=== PATIENT | female | born 1960 | race Caucasian/White ===

== ENCOUNTER 2021-12-15 15:00 | Emergency (ER) | payer OTHER ==
[~2021-12-15] VITALS: Ht 170.2 cm; Wt 59.0 kg
[2021-12-15 15:10] VITALS: BP 145/94
--- NOTE | 2021-12-15 15:23 | NUR ---
PT WALKED IN FROM HOME WITH FOREHEAD LACERATION, STATES SHE TRIPPED WHILE WALKING. C/O HEAD PAIN AND L WRIST PAIN. PT CHANGED INTO GOWN. AWAITING MD BACK.
--- NOTE | 2021-12-15 15:27 | NUR ---
HUNTER AT BEDSIDE TO CLEAN LACERATION
[2021-12-15] MEDS: LIDOCAINE 1%-EPI 1:100,000 20 ML VIAL TP ONE ×2 (15:31→15:33)
--- NOTE | 2021-12-15 15:34 | NUR ---
PT TAKEN FOR CT SCAN
--- NOTE | 2021-12-15 16:02 | NUR ---
PT RETURNED FROM CT
[2021-12-15] MEDS ORDERED: IBUP-1955 PO (17:29)
[2021-12-15] MEDS ORDERED: HYDR-4209 PO (17:29)
[2021-12-15] MEDS ORDERED: IBUPROFEN 600 MG TABLET PO ONE (17:30)
[2021-12-15] MEDS ORDERED: IBUPROFEN 600 MG TABLET ONE (17:35)
--- NOTE | 2021-12-15 18:02 | NUR ---
Patient discharged to home in stable condition. Written and verbal after care instructions given. Patient verbalizes understanding of instruction.
== END 2021-12-15 18:02 | disposition home or self-care (01) ==
LOC: ER 15:05
DX: S62.112A Displaced fracture of triquetrum [cuneiform] bone, left wrist, initial encounter for closed fracture (principal); S01.81XA Laceration without foreign body of other part of head, initial encounter; Z88.1 Allergy status to other antibiotic agents; W01.0XXA Fall on same level from slipping, tripping and stumbling without subsequent striking against object, initial encounter; Y93.89 Activity, other specified; Y92.098 Other place in other non-institutional residence as the place of occurrence of the external cause; Y99.8 Other external cause status
CPT/HCPCS: 12013; 29125; 70450; 70486; 72125; 73110; 99284; A6403